=== PATIENT | male | born 1960 | race Caucasian/White ===

== ENCOUNTER 2016-07-10 14:27 | Emergency (ER) | payer OTHER ==
[~2016-07-10] VITALS: Ht 180.3 cm; Wt 63.5 kg
[~2016-07-10 14:27] MED LIST: ABIL2TAB2 PO; ACET50TA PO; ASPI325T5 PO; ATEN50TA2 PO; ATOR1TAB19 PO; CHLO10CA PO; CHLORHEXIDINE TOP; CLOM25CA2 PO; CLON0.5T PO; CLONIPINE PO; CYMB1CAP PO; FOLI1TAB2 PO; IBUP200T2 PO; LIPI20TA PO; MAGN400T5 PO; MOBI15TA PO; MULTCAP PO; NEUR300C PO; NICO21DI5 TD; NORC5TAB PO; OMEP20CA3 PO; OXYC1SOL PO; OXYC1TAB30 PO; PAXI20TA3 PO; PERC2.5T PO; PERC5TAB PO; PERC7.5T12 PO; PRAV20TA2 PO; PRAV80TA2 PO; PROZ20CA11 PO; REME15TA PO; TIZA4CAP3 PO; TRAZ100T2 PO; TRAZ150T14 PO; TRIA EXT; TYLE325T5 PO; ULTR50TA PO; VITA100T60 PO; buspar PO; campral PO; serax PO
[2016-07-10] MEDS ORDERED: ZOFR4TAB3 PO (15:56)
[2016-07-10] MEDS ORDERED: OXAZ30CA2 PO (15:56)
[2016-07-10] MEDS ORDERED: OXAZEPAM 15 MG CAP PO ONE (16:00)
[2016-07-10 16:12] VITALS: BP 130/69
== END 2016-07-10 16:14 | disposition home or self-care (01) ==
LOC: M ED 16:13
DX: F10.20 Alcohol dependence, uncomplicated (principal)

== ENCOUNTER 2016-07-26 14:41 | Inpatient (IN) | payer MEDICAID, OTHER ==
[~2016-07-26] VITALS: Ht 180.3 cm; Wt 72.6 kg
[~2016-07-26 14:41] MED LIST changes: +OXAZ30CA2 PO; +ZOFR4TAB3 PO
[2016-07-26] MEDS ORDERED: LORazepam 2 MG/ML VIAL (J2060) IV STA (15:57)
[2016-07-26] MEDS ORDERED: PANTOPRAZOLE 40MG INJ (PROTONIX) (C9113) IV ONE (16:00)
[2016-07-26] MEDS ORDERED: ONDANSETRON 4MG/2ML VIAL (J2405) IV ONE (16:00)
[2016-07-26] MEDS ORDERED: NS 1,000 ML IV ONE (16:00)
[2016-07-26 16:06] LABS: MEAN CORPUSCULAR HGB CONC 35.3 g/dl (32.0-36.5); MEAN CORPUSCULAR VOLUME 99.4 fl (80.0-96.0); RED CELL DISTRIBUTION WIDTH 13.2 % (11.5-14.5); WHITE BLOOD COUNT 8.9 K/mm3 (4.0-10.0)
[2016-07-26 16:22] LABS: ALBUMIN 3.9 GM/DL (3.2-5.2); ALBUMIN/GLOBULIN RATIO 0.83 (1.00-1.93); ALKALINE PHOSPHATASE 103 U/L (45-117); ALT/SGPT 48 U/L (12-78); ANION GAP 16 MEQ/L (8-16); AST/SGOT 94 U/L (15-37); BILIRUBIN,DIRECT 1.2 MG/DL (0.0-0.2); BILIRUBIN,TOTAL 3.5 MG/DL (0.2-1.0); BLOOD UREA NITROGEN 8 MG/DL (7-18); CALCIUM LEVEL 9.4 MG/DL (8.5-10.1); CARBON DIOXIDE LEVEL 35 MEQ/L (21-32); CHLORIDE LEVEL 78 MEQ/L (98-107); CREATININE FOR GFR 1.53 MG/DL (0.70-1.30); GLOMERULAR FILTRATION RATE 50.4 (>56); GLUCOSE, FASTING 113 MG/DL (70-105); POTASSIUM SERUM 2.2 MEQ/L (3.5-5.1); SODIUM LEVEL 129 MEQ/L (136-145); TOTAL PROTEIN 8.6 GM/DL (6.4-8.2)
[2016-07-26] MEDS ORDERED: POTASSIUM CHLORIDE 10 MEQ SR TABLET PO ONE (16:30)
[2016-07-26] MEDS ORDERED: OXAZEPAM 15 MG CAP PO ONE (17:00)
[2016-07-26] MEDS ORDERED: NS 1,000 ML IV SCH (17:47)
[2016-07-26 17:48] LABS: AMYLASE 78 U/L (25-115); MAGNESIUM LEVEL 2.4 MG/DL (1.8-2.4); PHOSPHORUS LEVEL 2.9 MG/DL (2.5-4.9)
[2016-07-26] MEDS ORDERED: ACETAMINOPHEN TAB 650MG DOSE (2X325MG) PO PRN (18:00)
[2016-07-26] MEDS ORDERED: ONDANSETRON 4MG/2ML VIAL (J2405) IV PRN (18:00)
--- NOTE | 2016-07-26 18:23 | HPE ---
DATE OF ADMISSION: 07/26/2016 HISTORY OF PRESENT ILLNESS: 56-year-old white male with a history of alcoholism. He has had previous admissions to inpatient mental health for evaluation of this disorder. He says he drinks about 8 beers a day and occasionally has a couple shots of liquor with it. He does have a history of previous withdrawal symptoms and he thinks he might be having them currently and he presented to the ER. He has had nausea with vomiting the last 24 hours. No blood in the vomit. He has chronic loose stools, but he has had no blood in his stools. He thinks he may have a history of pancreatitis. He has amylase and lipase pending. He tells me he has cirrhosis of the liver, but I do not see any convincing evidence of same on prior radiographic studies or blood work. He had ultrasound of the liver in 2016 which showed findings consistent with probable fatty liver. He has had previous LFTs elevated. His SGOT has been greater than his SGPT which is consistent with alcohol hepatitis. His liver function test on this visit are minimally elevated.. On admission today, his white count is not elevated. He has had no fever. He has a contraction alkalosis with hypokalemia. His sodium is depressed at 129. Lactic acid level was elevated at 4.6. Amylase and lipase are pending. His total protein is elevated, probably reflecting dehydration. Albumin is higher than I would expect also. I reviewed his prior records. He has been in the ER several times intoxicated with blood level alcohol as high as 0.4. Only other substance abuse he uses is marijuana. Coagulation studies were not done on this admission. In the past, they have been mildly elevated. His INR has been 1.2. His previous CBCs have occasionally been noted for mild thrombocytopenia, probably secondary from alcohol. I do not think I can relate this to hypersplenism. His last CT of the abdomen was in March 2014. Liver, spleen, pancreas were normal at that time. He had an EKG done which shows normal sinus rhythm and frequent premature ventricular contractions (PVCs). He also has anterior ST-T wave abnormalities. As noted his potassium was low and magnesium level is pending. MEDICATIONS: The patient is unsure. He says he takes meloxicam; does not know what he takes it for and he says he takes one other medication, but he cannot recall what it is. ALLERGIES: No allergies. SOCIAL HISTORY: He readily admits he has been an alcoholic for many years; smokes marijuana. FAMILY HISTORY: Dad of complications of alcoholism. PAST MEDICAL HISTORY: He has had a fractured left leg with an ORIF lower leg, hernia repair, several ER visits for intoxication, mental health visits, chronic back pain history of depression. He has seen mental health. Currently I do not believe he is on any antidepressants. REVIEW OF SYSTEMS: General: No fever or chills. HEENT: His left eyelid was stuck closed today, but that is open now. There does not appear to be any conjunctivitis Cardiopulmonary: Negative. GI: As discussed above. He also has some mid epigastric pain. He does have chronic loose stools. : Negative. Musculoskeletal: Arthritic complaints. Hematologic: Negative except for issues in the past with very mild elevation in PT/INR and intermittently low platelets. Endocrine: Negative. Dermatologic: Negative. Psychiatric: As above. PHYSICAL EXAMINATION: Temperature afebrile. Blood pressure is 141/64, pulse rates 104, O2 saturation 97%, respiratory rate 16. General appearance: Disheveled, unkempt gentleman. HEENT: Head is normocephalic, atraumatic. Eyes: Pupils are equal. Sclera anicteric. Conjunctivae without injection. He was having some matting of the left eye earlier today, but that seems to be resolved. Oropharynx: He is edentulous. Neck: Supple. Carotids are normal. No bruits. No jugular venous distention (JVD). No cervical adenopathy. Heart: Was tachycardia with ectopics. Chest: No murmurs. Chest: Was clear. Abdomen was nontender. He is complaining of some vague epigastric discomfort. Extremities: No clubbing, cyanosis or edema. Good peripheral pulses. Rectal: Rectal smear revealed, heme test negative. IMPRESSION/PLAN: 1. Alcohol withdrawal. Probable alcoholic gastritis. Amylase and lipase pending to rule out pancreatitis. 2. Electrolyte abnormality with hyponatremia and hypokalemia and contraction alkalosis. 3. Fatty liver. 4. History of hyperlipidemia. 5. Acute kidney injury. GFR is in the high 50s. He normally is greater than 60. 6. Elevated lactic acid, probably secondary to alcohol. I do not have an EtOH level pending. He does not have any suggestion of sepsis. No fever. No elevation in white count. 7. Profound dehydration. PLAN: IV fluids, benzodiazepines, replete electrolytes. Followup on abnormal EKG. Will also followup with troponin.
[2016-07-26 20:00] VITALS: BP 134/58
[2016-07-26] MEDS: THIAMINE 100 MG TAB PO SCH (20:15)
[2016-07-26] MEDS: MAG SULF 1GM/100ML (MAG RUN) 1 GM in APPROPRIATE DILUENT 1 EA IV SCH ×2 (20:15→22:05)
[2016-07-26] MEDS: KCL 40MEQ in NS 1000ML 1,000 ML IV SCH (20:15)
[2016-07-26] MEDS: OXAZEPAM 10 MG CAP PO SCH (23:48)
[2016-07-27] VITALS (8 sets, daily range): BP systolic 89–112; BP diastolic 52–64
[2016-07-27] MEDS: KCL 40MEQ in NS 1000ML 1,000 ML IV SCH ×4 (04:58→19:53)
[2016-07-27] MEDS: OXAZEPAM 10 MG CAP PO SCH ×4 (05:00→22:52)
[2016-07-27 08:06] LABS: BASO % 0.4 % (0.0-1.0); EOS % 1.2 % (0.0-3.0); LARGE UNSTAINED CELL # 0.1 K/mm3 (0.0-0.4); LARGE UNSTAINED CELL % 1.8 % (0.0-4.0); LYMPH # 0.8 K/mm3 (1.5-4.5); LYMPH % 16.4 % (24.0-44.0); MEAN CORPUSCULAR HEMOGLOBIN 34.9 pg (27.0-33.0); MEAN CORPUSCULAR HGB CONC 34.8 g/dl (32.0-36.5); MEAN CORPUSCULAR VOLUME 100.2 fl (80.0-96.0); MONO # 0.4 K/mm3 (0.0-0.8); MONO % 8.7 % (0.0-5.0); NEUTROPHILS # 3.1 K/mm3 (1.8-7.7); NEUTROPHILS % 71.5 % (36.0-66.0); WHITE BLOOD COUNT 4.4 K/mm3 (4.0-10.0)
[2016-07-27 08:17] LABS: ALBUMIN 2.6 GM/DL (3.2-5.2); ALKALINE PHOSPHATASE 68 U/L (45-117); ALT/SGPT 30 U/L (12-78); ANION GAP 8 MEQ/L (8-16); AST/SGOT 66 U/L (15-37); BILIRUBIN,TOTAL 2.4 MG/DL (0.2-1.0); BLOOD UREA NITROGEN 10 MG/DL (7-18); CALCIUM LEVEL 7.3 MG/DL (8.5-10.1); CARBON DIOXIDE LEVEL 35 MEQ/L (21-32); CHLORIDE LEVEL 93 MEQ/L (98-107); CREATININE FOR GFR 0.97 MG/DL (0.70-1.30); GLOMERULAR FILTRATION RATE > 60.0 (>56); GLUCOSE, FASTING 85 MG/DL (70-105); MAGNESIUM LEVEL 2.8 MG/DL (1.8-2.4); POTASSIUM SERUM 3.1 MEQ/L (3.5-5.1); SODIUM LEVEL 136 MEQ/L (136-145); TOTAL PROTEIN 5.5 GM/DL (6.4-8.2)
[2016-07-27 08:33] LABS: PLATELET COUNT, AUTOMATED 82 k/mm3 (150-450)
[2016-07-27] MEDS: THIAMINE 100 MG TAB PO SCH (09:06)
[2016-07-27] MEDS ORDERED: POTASSIUM CHLORIDE 10 MEQ SR TABLET PO ONE (11:30)
[2016-07-27] MEDS ORDERED: SODIUM CHLORIDE 0.9% 1000 ML IV ONE (11:30)
[2016-07-27] MEDS: MULTIVITAMINS/MINERALS THERAP 1 TAB PO SCH (11:36)
[2016-07-27] MEDS: FOLIC ACID 1 MG TAB PO SCH (11:36)
--- NOTE | 2016-07-27 12:25 | IPN ---
DATE: 07/27/2016 This is a 56-year-old gentleman seen at bedside resting comfortably. He does still have some asterixis noted when we have a conversation but he denies any headache, lightheadedness, nausea, vomiting, is tolerating his breakfast. Temperature 98.1, pulse 72 and regular, respiratory rate is 20, blood pressure 109/64, SPO2 is 96% on room air. General: The patient appears to be in no acute distress. HEENT: Unremarkable. Lungs: Clear. Heart: Regular rhythm. Abdomen: Soft. Extremities: He does have some demonstrated asterixis of the hands. Some slight tremulousness noted. The lower extremities showed no edema or calf tenderness. LABORATORY DATA: White count is 4.4, hemoglobin 11.4, likely hemodilution. Platelets are 82,000. Sodium is 136, potassium 3.1, chloride 93, bicarb 35, anion gap, BUN is 10, creatinine 0.97, glucose is 85, calcium 7.3, magnesium 2.8, total bilirubin 2.4 down from 3.5. AST is 66, ALT 30, alkaline phosphatase 68. Troponin less than 0.02, albumin is 5.5. Admission amylase 78, lipase 235. ASSESSMENT/PLAN: 1. Alcohol withdrawal with some metabolic encephalopathy on admission probable alcoholic gastritis. However, his amylase and lipase are negative and ruled out pancreatitis. Will try to advance diet as tolerated. He is also on thiamine, folic acid, multivitamin. Will monitor for further withdrawal symptoms. He does have ordered Serax and Ativan for breakthrough. 2. Hypotension: We will go ahead and give him a bolus of 500 mL normal saline. Will keep an eye on his blood pressure. 3. Electrolyte abnormality with hypokalemia, which we will go ahead and replete his hyponatremia does appear to be improving. 4. Fatty liver likely secondary to alcoholism: His LFTs do appear to be slightly improved and he does not appear to have any abnormal INR. 5. History of hyperlipidemia: We will hold off on any statin therapy, currently. 6. Acute kidney injury: Will monitor his renal function. This does appear to be improving as well. 7. Elevated lactic acid. He does not have any symptomatology, fevers, white count or any other suggestion that he would be septic. 8. Dehydration likely secondary to alcohol consumption and possible gastritis. DISPOSITION: We will continue with IV fluids, Serax Ativan multivitamin, folic acid, thiamine. Followup EKG this morning was unremarkable and his troponin was unremarkable as well. Will go ahead and plan on downgrading him to the medical floor. Patient/Family services (PFS) is involved and he may need some outpatient followup to make sure that he is connected with [facility] or another program to help out with his alcohol abuse. Deep venous thrombosis (DVT) prophylaxis with thromboembolic deterrent stockings (TEDS) and sequential since he does have some mild thrombocytopenia. We will repeat this in the morning as well.
--- NOTE | 2016-07-27 13:28 | ECGEPIP ---
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
[2016-07-27] MEDS: PANTOPRAZOLE 40MG INJ (PROTONIX) (C9113) IV SCH (16:44)
[2016-07-27] MEDS ORDERED: NICOTINE 21MG/24HR 1 EA TRANSDERMAL TD ONE (21:15)
[2016-07-27] MEDS: LORazepam 2 MG/ML VIAL (J2060) IM PRN (21:36)
[2016-07-27] MEDS ORDERED: LORazepam 2 MG/ML VIAL (J2060) IV STA (23:02)
[2016-07-28] VITALS: BP 102/63
[2016-07-28] MEDS ORDERED: HALOPERIDOL 5 MG/ML VIAL (J1630) IV STA (00:23)
[2016-07-28] MEDS: KCL 40MEQ in NS 1000ML 1,000 ML IV SCH ×4 (02:17→21:48)
[2016-07-28 04:00] VITALS: BP 110/64
[2016-07-28 05:24] LABS: BASO % 0.5 % (0.0-1.0); EOS # 0.1 K/mm3 (0.0-0.50); EOS % 1.8 % (0.0-3.0); LARGE UNSTAINED CELL # 0.1 K/mm3 (0.0-0.4); LARGE UNSTAINED CELL % 2.2 % (0.0-4.0); LYMPH % 28.7 % (24.0-44.0); MEAN CORPUSCULAR HEMOGLOBIN 35.9 pg (27.0-33.0); MEAN CORPUSCULAR HGB CONC 35.2 g/dl (32.0-36.5); MONO # 0.3 K/mm3 (0.0-0.8); MONO % 9.7 % (0.0-5.0); NEUTROPHILS # 1.8 K/mm3 (1.8-7.7); NEUTROPHILS % 57.1 % (36.0-66.0); RED CELL DISTRIBUTION WIDTH 12.8 % (11.5-14.5); WHITE BLOOD COUNT 3.2 K/mm3 (4.0-10.0)
[2016-07-28 05:26] LABS: PLATELET COUNT, AUTOMATED 74 k/mm3 (150-450)
[2016-07-28] MEDS: OXAZEPAM 10 MG CAP PO SCH ×5 (05:26→23:16)
[2016-07-28 05:31] LABS: ALBUMIN 2.2 GM/DL (3.2-5.2); ALBUMIN/GLOBULIN RATIO 0.76 (1.00-1.93); ALKALINE PHOSPHATASE 111 U/L (45-117); ALT/SGPT 24 U/L (12-78); ANION GAP 2 MEQ/L (8-16); AST/SGOT 46 U/L (15-37); BILIRUBIN,TOTAL 1.2 MG/DL (0.2-1.0); BLOOD UREA NITROGEN 13 MG/DL (7-18); CALCIUM LEVEL 7.3 MG/DL (8.5-10.1); CARBON DIOXIDE LEVEL 31 MEQ/L (21-32); CHLORIDE LEVEL 104 MEQ/L (98-107); CREATININE FOR GFR 0.88 MG/DL (0.70-1.30); GLOMERULAR FILTRATION RATE > 60.0 (>56); GLUCOSE, FASTING 92 MG/DL (70-105); POTASSIUM SERUM 4.1 MEQ/L (3.5-5.1); SODIUM LEVEL 137 MEQ/L (136-145); TOTAL PROTEIN 5.1 GM/DL (6.4-8.2)
[2016-07-28 08:00] VITALS: BP 106/56
[2016-07-28] MEDS: NICOTINE 21MG/24HR 1 EA TRANSDERMAL TD SCH (08:31)
[2016-07-28] MEDS: MULTIVITAMINS/MINERALS THERAP 1 TAB PO SCH (08:31)
[2016-07-28] MEDS: THIAMINE 100 MG TAB PO SCH (08:31)
[2016-07-28] MEDS: FOLIC ACID 1 MG TAB PO SCH (08:32)
--- NOTE | 2016-07-28 11:19 | IPNPDOC ---
Subjective Date Seen The patient was seen on 07/28/16. Subjective Chief Complaint/HPI The patient is a 56-year-old male admitted with a reason for visit of Alcohol Withdrawal. Events since last encounter Per nrusing reports, patient agitated overnight. Received Ativan 3mg IV and Haldol 5 mg IV within ai 1.5 hour time frame. Now drowsy, sedated, difficult to wake. Constitutional: Denies: Chills, Fever, Night Sweats Skin: Denies: Rash, Lesions, Breakdown Pulmonary: Denies: Dyspnea, Cough Cardiovascular: Denies: Chest Pain, Palpitations, Orthopnea, Paroxysmal Noc. Dyspnea, Lt Headedness Gastrointestinal: Denies: Nausea, Vomiting, Abdominal Pain, Diarrhea, Constipation Genitourinary: Denies: Dysuria, Frequency, Incontinence, Retention Psych: Reports: Mood Normal, Denies: Depression, Memory Issues Objective Physical Examination General Exam: Positive: Alert, No Acute Distress, Other (drowsy, wakes for provider, urinated on own. ) Eye Exam: Positive: PERRLA, Conjunctiva & lids normal, EOMI, Negative: Sclera icteric Neck Exam: Positive: Supple, Negative: JVD, thyromegaly Chest Exam: Positive: Clear to auscultation, Normal air movement Heart Exam: Positive: Rate Normal, Regular Rhythm, Normal S1, Normal S2, Negative: Murmurs, Rubs Telemetry: Positive: No significant arrhythmia Abdomen Exam: Positive: Normal bowel sounds, Soft, Tenderness (RUQ), Negative: Hepatospenomegaly Neuro Exam: Positive: Normal Gait, Normal Speech, Cranial Nerves 3-12 NL, Reflexes 2+ Psych Exam: Positive: Mental status NL (lethargic) Assessment /Plan Problems (1) Alcohol withdrawal Status: Acute Problem Text: IVF at 150 cc per hour, CIWA protocol ordered. Thiamine, folate supplementation. Drowsy, lethargic due to oversedation. 1200 Oxazepam to be held due to lethargy. monitor. (2) Hyponatremia Status: Acute Problem Text: 07/28/2016: most recent sodium 137. will monitor CMP ordered for today at 1200 (3) Abdominal pain Status: Acute Problem Text: Will eval imaging today. (4) Alcohol abuse Status: Chronic Problem Specific Plan: Monitor Clinically Plan/VTE VTE Prophylaxis Ordered?: No (low platelets) VS, I&O, 24H, Fishbone Vital Signs/I&O Vital Signs Date Time Temp Pulse Resp B/P (MAP) Pulse Ox O2 Delivery O2 Flow Rate FiO2 07/28/16 08:00 98.3 71 17 106/56 (73) 93 Room Air I&O- Last 24 Hours up to 6 AM 07/28/16 05:59 Intake Total 4010 ml Output Total 850 ml Balance 3160 ml Laboratory Data 24H LABS Laboratory Tests 2 07/28/16 04:55: White Blood Count 3.2L, Red Blood Count 3.11L, Hemoglobin 11.2L, Hematocrit 31.7L, Mean Corpuscular Volume 102.0H, Mean Corpuscular Hemoglobin 35.9H, Mean Corpuscular Hemoglobin Concent 35.2, Red Cell Distribution Width 12.8, Platelet Count 74L, Neutrophils (%) (Auto) 57.1, Lymphocytes (%) (Auto) 28.7, Monocytes ( %) (Auto) 9.7H, Eosinophils (%) (Auto) 1.8, Basophils (%) (Auto) 0.5, Neutrophils # (Auto) 1.8, Lymphocytes # (Auto) 1.0L, Monocytes # (Auto) 0.3, Eosinophils # (Auto) 0.1, Basophils # (Auto) 0.0, Large Unclassified Cells % 2.2 , Large Unclassified Cells # 0.1, Anion Gap 2L, Glomerular Filtration Rate > 60.0, Blood Urea Nitrogen 13, Creatinine 0.88, Sodium Level 137, Potassium Level 4.1#, Chloride Level 104, Carbon Dioxide Level 31, Calcium Level 7.3L, Aspartate Amino Transf (AST/SGOT) 46H, Alanine Aminotransferase (ALT/SGPT) 24, Alkaline Phosphatase 111, Total Bilirubin 1.2H, Total Protein 5.1L, Albumin 2.2L , Albumin/Globulin Ratio 0.76L CBC/BMP Laboratory Tests 07/28/16 04:55 Red Blood Count 3.11 L, Mean Corpuscular Volume 102.0 H, Mean Corpuscular Hemoglobin 35.9 H, Mean Corpuscular Hemoglobin Concent 35.2, Red Cell Distribution Width 12.8, Neutrophils (%) (Auto) 57.1, Lymphocytes (%) (Auto) 28.7, Monocytes (%) (Auto) 9.7 H, Eosinophils (%) (Auto) 1.8, Basophils (%) ( Auto) 0.5, Neutrophils # (Auto) 1.8, Lymphocytes # (Auto) 1.0 L, Monocytes # ( Auto) 0.3, Eosinophils # (Auto) 0.1, Basophils # (Auto) 0.0, Calcium Level 7.3 L , Aspartate Amino Transf (AST/SGOT) 46 H, Alanine Aminotransferase (ALT/SGPT) 24 , Alkaline Phosphatase 111, Total Bilirubin 1.2 H, Total Protein 5.1 L, Albumin 2.2 L Ann Smith [facility] Jul 28, 2016 11:19
--- NOTE | 2016-07-28 11:40 | ECGEPIP ---
Stationary ECG Study 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
[2016-07-28 12:00] VITALS: BP 104/56
[2016-07-28 14:19] LABS: ALBUMIN 2.3 GM/DL (3.2-5.2); ALBUMIN/GLOBULIN RATIO 0.85 (1.00-1.93); ALKALINE PHOSPHATASE 110 U/L (45-117); ALT/SGPT 25 U/L (12-78); ANION GAP 6 MEQ/L (8-16); AST/SGOT 42 U/L (15-37); BLOOD UREA NITROGEN 10 MG/DL (7-18); CALCIUM LEVEL 7.6 MG/DL (8.5-10.1); CARBON DIOXIDE LEVEL 27 MEQ/L (21-32); CHLORIDE LEVEL 104 MEQ/L (98-107); GLOMERULAR FILTRATION RATE > 60.0 (>56); GLUCOSE, FASTING 94 MG/DL (70-105); POTASSIUM SERUM 4.5 MEQ/L (3.5-5.1); SODIUM LEVEL 137 MEQ/L (136-145)
[2016-07-28] MEDS: PANTOPRAZOLE 40MG INJ (PROTONIX) (C9113) IV SCH (15:04)
[2016-07-28 16:00] VITALS: BP 136/84
--- NOTE | 2016-07-28 18:04 | REP ---
LIMITED ABDOMEN ULTRASOUND: HISTORY: Right upper quadrant pain. COMPARISON: 11/22/2015 The gallbladder is contracted. There are polyps versus nonmobile stones on the fundus of a gallbladder. The gallbladder wall is thick measuring 3 mm. The common bile duct is dilated measuring 7.9 mm. A small amount of pericholecystic fluid is present. There is fatty infiltration of the liver. The pancreas is not seen. The right kidney measures 5.6 cm in transverse x 5.1 cm in AP x 10.7 cm in cephalocaudal dimensions. There is no hydronephrosis or mass. A small amount of ascites is present. IMPRESSION:1. There are polyps versus nonmobile stones in the fundus of the gallbladder wall. The common bile duct is dilated measuring 7.9 mm. 2. Fatty infiltration of the liver. 3. Small amount of ascites. Signed by Bairon Sewell MD 07/31/2016 08:30 A
[2016-07-28 20:00] VITALS: BP 131/74
[2016-07-29] VITALS: BP 127/68
[2016-07-29 02:00] VITALS: BP 113/73
[2016-07-29] MEDS: LORazepam 2 MG/ML VIAL (J2060) IM PRN ×2 (02:01→12:53)
[2016-07-29 04:00] VITALS: BP 113/73
[2016-07-29 04:50] LABS: EOS # 0.1 K/mm3 (0.0-0.50); LARGE UNSTAINED CELL # 0.1 K/mm3 (0.0-0.4); LARGE UNSTAINED CELL % 3.1 % (0.0-4.0); LYMPH % 27.5 % (24.0-44.0); MEAN CORPUSCULAR HEMOGLOBIN 35.2 pg (27.0-33.0); MEAN CORPUSCULAR HGB CONC 34.3 g/dl (32.0-36.5); MEAN CORPUSCULAR VOLUME 102.7 fl (80.0-96.0); MONO # 0.3 K/mm3 (0.0-0.8); MONO % 8.6 % (0.0-5.0); NEUTROPHILS # 1.9 K/mm3 (1.8-7.7); NEUTROPHILS % 57.8 % (36.0-66.0); RED CELL DISTRIBUTION WIDTH 12.9 % (11.5-14.5); WHITE BLOOD COUNT 3.2 K/mm3 (4.0-10.0)
[2016-07-29 04:56] LABS: PLATELET COUNT, AUTOMATED 76 k/mm3 (150-450)
[2016-07-29 05:03] LABS: ALBUMIN 2.3 GM/DL (3.2-5.2); ALBUMIN/GLOBULIN RATIO 0.79 (1.00-1.93); ALKALINE PHOSPHATASE 130 U/L (45-117); ALT/SGPT 24 U/L (12-78); ANION GAP 7 MEQ/L (8-16); AST/SGOT 40 U/L (15-37); BILIRUBIN,TOTAL 0.7 MG/DL (0.2-1.0); BLOOD UREA NITROGEN 6 MG/DL (7-18); CALCIUM LEVEL 7.4 MG/DL (8.5-10.1); CARBON DIOXIDE LEVEL 26 MEQ/L (21-32); CHLORIDE LEVEL 103 MEQ/L (98-107); CREATININE FOR GFR 0.76 MG/DL (0.70-1.30); GLOMERULAR FILTRATION RATE > 60.0 (>56); GLUCOSE, FASTING 110 MG/DL (70-105); POTASSIUM SERUM 4.3 MEQ/L (3.5-5.1); SODIUM LEVEL 136 MEQ/L (136-145); TOTAL PROTEIN 5.2 GM/DL (6.4-8.2)
[2016-07-29] MEDS: OXAZEPAM 10 MG CAP PO SCH ×2 (05:20→11:56)
[2016-07-29] MEDS: KCL 40MEQ in NS 1000ML 1,000 ML IV SCH ×2 (05:21→11:50)
[2016-07-29 08:00] VITALS: BP 127/76
[2016-07-29] MEDS: THIAMINE 100 MG TAB PO SCH (08:52)
[2016-07-29] MEDS: MULTIVITAMINS/MINERALS THERAP 1 TAB PO SCH (08:52)
[2016-07-29] MEDS: FOLIC ACID 1 MG TAB PO SCH (08:52)
[2016-07-29] MEDS: NICOTINE 21MG/24HR 1 EA TRANSDERMAL TD SCH (08:53)
[2016-07-29 12:00] VITALS: BP 123/70
[2016-07-29] MEDS ORDERED: LORazepam 1 MG TAB PO PRN (14:45)
[2016-07-29] MEDS ORDERED: KCL 40MEQ in NS 1000ML 1,000 ML IV SCH (15:00)
[2016-07-29] MEDS ORDERED: LORazepam 1 MG TAB PO ONE (15:00)
--- NOTE | 2016-07-29 15:06 | IPNPDOC ---
Subjective Date Seen The patient was seen on 07/29/16. Subjective Chief Complaint/HPI The patient is a 56-year-old male admitted with a reason for visit of Alcohol Withdrawal. Events since last encounter Patient has no complaints this morning. He states he had no difficulty eating and denies any abdominal pain. Constitutional: Denies: Chills, Fever ENT: Denies: Head Aches Skin: Denies: Rash Pulmonary: Denies: Dyspnea, Cough Cardiovascular: Denies: Chest Pain, Palpitations Gastrointestinal: Denies: Nausea, Vomiting, Abdominal Pain Genitourinary: Denies: Dysuria Musculoskeletal: Denies: Neck Pain, Back Pain Neurological: Denies: Weakness, Numbness, Confusion Objective Physical Examination General Exam: Positive: Alert, No Acute Distress, Other (drowsy, wakes for provider, urinated on own. ) Eye Exam: Positive: PERRLA, Conjunctiva & lids normal, EOMI, Negative: Sclera icteric Neck Exam: Positive: Supple, Negative: JVD, thyromegaly Chest Exam: Positive: Clear to auscultation, Normal air movement Heart Exam: Positive: Rate Normal, Regular Rhythm, Normal S1, Normal S2, Negative: Murmurs, Rubs Telemetry: Positive: No significant arrhythmia Abdomen Exam: Positive: Normal bowel sounds, Soft, Negative: Tenderness, Hepatospenomegaly Neuro Exam: Positive: Normal Gait, Normal Speech, Cranial Nerves 3-12 NL, Reflexes 2+ Psych Exam: Positive: Mental status NL (lethargic) Assessment /Plan Problems (1) Alcohol withdrawal Status: Acute Problem Text: Oxazepam 20 mg Q6H for withdrawal symptoms; he is not sedated today and has only required 3 doses of ativan in the last 24 hours. CIWA scores have been around 6. Decrease to IVF at 100 cc per hour. VSS stable. CIWA protocol ordered. Thiamine, folate supplementation. (2) Hyponatremia Status: Resolved (3) Abdominal pain Status: Acute Problem Text: Patient was c/o RUQ pain yesterday. He states pain has resolved, and denies pain with eating. Will monitor symptoms. RUQ ultrasound obtained 07/28/16: IMPRESSION: 1. There are polyps versus nonmobile stones in the fundus of the gallbladder wall. The common bile duct is dilated measuring 7.9 mm. 2. Fatty infiltration of the liver. 3. Small amount of ascites. (4) Alcohol abuse Status: Chronic Problem Specific Plan: Monitor Clinically (5) Tobacco use disorder Status: Chronic Problem Text: Continue nicotine patch Plan/VTE VTE Prophylaxis Ordered?: No (low platelets) VS, I&O, 24H, Fishbone Vital Signs/I&O Vital Signs Date Time Temp Pulse Resp B/P (MAP) Pulse Ox O2 Delivery O2 Flow Rate FiO2 07/29/16 12:00 98.5 89 17 123/70 (87) 96 Room Air I&O- Last 24 Hours up to 6 AM 07/29/16 05:59 Intake Total 2840 ml Output Total 2775 ml Balance 65 ml Laboratory Data 24H LABS Laboratory Tests 2 07/29/16 04:13: White Blood Count 3.2L, Red Blood Count 3.26L, Hemoglobin 11.5L, Hematocrit 33.5L, Mean Corpuscular Volume 102.7H, Mean Corpuscular Hemoglobin 35.2H, Mean Corpuscular Hemoglobin Concent 34.3, Red Cell Distribution Width 12.9, Platelet Count 76L, Neutrophils (%) (Auto) 57.8, Lymphocytes (%) (Auto) 27.5, Monocytes ( %) (Auto) 8.6H, Eosinophils (%) (Auto) 2.0, Basophils (%) (Auto) 1.0, Neutrophils # (Auto) 1.9, Lymphocytes # (Auto) 1.0L, Monocytes # (Auto) 0.3, Eosinophils # (Auto) 0.1, Basophils # (Auto) 0.0, Large Unclassified Cells % 3.1 , Large Unclassified Cells # 0.1, Anion Gap 7L, Glomerular Filtration Rate > 60.0, Blood Urea Nitrogen 6L, Creatinine 0.76, Sodium Level 136, Potassium Level 4.3, Chloride Level 103, Carbon Dioxide Level 26, Calcium Level 7.4L, Aspartate Amino Transf (AST/SGOT) 40H, Alanine Aminotransferase (ALT/SGPT) 24, Alkaline Phosphatase 130H, Total Bilirubin 0.7, Total Protein 5.2L, Albumin 2.3L , Albumin/Globulin Ratio 0.79L CBC/BMP Laboratory Tests 07/29/16 04:13 Red Blood Count 3.26 L, Mean Corpuscular Volume 102.7 H, Mean Corpuscular Hemoglobin 35.2 H, Mean Corpuscular Hemoglobin Concent 34.3, Red Cell Distribution Width 12.9, Neutrophils (%) (Auto) 57.8, Lymphocytes (%) (Auto) 27.5, Monocytes (%) (Auto) 8.6 H, Eosinophils (%) (Auto) 2.0, Basophils (%) ( Auto) 1.0, Neutrophils # (Auto) 1.9, Lymphocytes # (Auto) 1.0 L, Monocytes # ( Auto) 0.3, Eosinophils # (Auto) 0.1, Basophils # (Auto) 0.0, Calcium Level 7.4 L , Aspartate Amino Transf (AST/SGOT) 40 H, Alanine Aminotransferase (ALT/SGPT) 24 , Alkaline Phosphatase 130 H, Total Bilirubin 0.7, Total Protein 5.2 L, Albumin 2.3 L ROLANDO VAUGHN MD Jul 29, 2016 15:06
--- NOTE | 2016-07-29 19:11 | DSES ---
DATE OF ADMISSION: 07/26/2016 DATE OF DISCHARGE: 07/29/2016 (The patient left against medical advice.) Primary Care Provider: DAWOOD Boone Attending Physician: Renetta Baker MD PRINCIPAL DIAGNOSES: 1. Alcohol withdrawal. 2. Hyponatremia. 3. Acute kidney injury due to profound dehydration 4. Hypokalemia and contraction alkalosis 5. Right upper quadrant abdominal pain. 6. Alcohol use disorder. 7. Tobacco use disorder. SUMMARY STATEMENT: This is a 56-year-old man, a patient of Feliciano Haines, who presented with alcohol withdrawal. He reported drinking eight beers a day, as well as a couple of shots of liquor. Prior to admission, he had nausea and vomiting but no hematemesis. He was admitted and treated for alcohol withdrawal with oxazepam as well as lorazepam as needed. He initially had multiple electrolyte abnormalities including hypokalemia, hyponatremia and alkalosis which resolved with fluid administration. On the last day of hospitalization, the patient became agitated and stated he wanted to go outside to smoke cigarettes. His agitation was treated with lorazepam but despite this, the patient stated he wished to leave against medical advice in order to go home to drink alcohol and to smoke. The patient's nurse recommended that he stay and discussed with him risks for leaving including risks of recurrence of presenting symptoms and risk of . The patient acknowledged understanding of these risks and signed out against medical advice. I had evaluated the patient earlier in the day and found him to be alert and oriented to person, date, situation. DISCHARGE PLANS: 1. Discharge medications: None. 2. Followup recommended with his primary care provider, Bhanu Haines. CONDITION ON DISCHARGE: Stable. PROGNOSIS: Fair. PENDING STUDIES: None. HOSPITAL COURSE: This is a 56-year-old man with: 1. Alcohol use disorder and alcohol withdrawal: The patient was treated with oxazepam 20 mg every six hours, as well as lorazepam. He did not require much lorazepam for agitation during the hospitalization. He was also given folic acid , thiamine and was rehydrated. He elected to leave against medical advice because he wanted to resume drinking alcohol. 2. Acute kidney injury: This resolved with intravenous (IV) fluid administration. 3. Hypokalemia and hyponatremia: These resolved with fluid administration and supplemental potassium. 4. Right upper quadrant abdominal pain was noted on second day of admission. A right upper quadrant ultrasound showed polyps versus non-mobile stones in the fundus of the gallbladder and dilated common bile duct of 7.9 mm, as well as fatty infiltration of the liver and a small amount of ascites. Results of the ultrasound were discussed with the patient, and outpatient followup was recommended. Pain had resolved on day patient left against medical advice. 5. Tobacco use disorder: patient was given a nicotine patch. MTDD
[2016-07-30] MEDS ORDERED: KEFL500C7 PO (13:52)
== END 2016-07-29 15:55 | disposition left against medical advice (07) | DRG 770 ==
LOC: M ED 15:39 → M ED INP 17:47 → M ICU 07-27 12:26
PROVIDERS: ATTEND Family Medicine
DX: F10.239 Alcohol dependence with withdrawal, unspecified (principal); G93.41 Metabolic encephalopathy; N17.9 Acute kidney failure, unspecified; R18.8 Other ascites; E87.2 Acidosis; I95.9 Hypotension, unspecified; E87.1 Hypo-osmolality and hyponatremia; K70.0 Alcoholic fatty liver; F17.210 Nicotine dependence, cigarettes, uncomplicated; E87.6 Hypokalemia; E86.0 Dehydration; K80.70 Calculus of gallbladder and bile duct without cholecystitis without obstruction

== ENCOUNTER 2016-07-30 12:40 | Emergency (ER) | payer OTHER ==
[~2016-07-30] VITALS: Ht 180.3 cm; Wt 79.4 kg
[2016-07-30] MEDS ORDERED: KEFL500C7 PO (13:52)
[2016-07-30] MEDS ORDERED: CEPHALEXIN 500 MG CAP PO ONE (14:00)
[2016-07-30] MEDS ORDERED: NORCO, ANEXSIA 5/325MG TABLET (HYDROcodone/ACETAMINOPHEN) PO ONE (14:00)
[2016-07-30] MEDS ORDERED: ADACEL/BOOSTRIX VACCINE (DIPHTH/PERTUSS/ACELL/TETANUS)0.5ML SYR (90715) IM ONE (14:00)
[2016-07-30] MEDS ORDERED: SILVER SULFADIAZINE 1% CR 50 GM JAR TOP ONE (14:00)
[2016-07-30 14:47] VITALS: BP 130/78
== END 2016-07-30 14:53 | disposition home or self-care (01) ==
LOC: M ED 13:36
DX: S90.821A Blister (nonthermal), right foot, initial encounter (principal); S90.822A Blister (nonthermal), left foot, initial encounter; X50.3XXA Overexertion from repetitive movements, initial encounter; Y92.9 Unspecified place or not applicable; Y93.01 Activity, walking, marching and hiking; Y99.0 Civilian activity done for income or pay; R56.9 Unspecified convulsions; F10.20 Alcohol dependence, uncomplicated

== ENCOUNTER 2016-08-31 14:38 | Emergency (ER) | payer OTHER ==
[~2016-08-31] VITALS: Ht 180.3 cm; Wt 71.8 kg
[~2016-08-31 14:38] MED LIST changes: +ABIL1TAB13 PO; -ABIL2TAB2 PO; -FOLI1TAB2 PO; +FOLI1TAB4 PO; +KEFL500C17 PO; -OXYC1SOL PO; +OXYC1SOL3 PO; +PAXI20TA29 PO; -PAXI20TA3 PO; -TRAZ150T14 PO; +TRAZ1TAB14 PO
[2016-08-31] MEDS ORDERED: LORazepam 2 MG/ML VIAL (J2060) IV STA (15:26)
[2016-08-31] MEDS ORDERED: OXAZEPAM 15 MG CAP PO ONE (15:30)
[2016-08-31] MEDS ORDERED: NS 1,000 ML IV ONE (15:30)
[2016-08-31 16:17] LABS: BASO % 0.9 % (0.0-1.0); EOS # 0.2 K/mm3 (0.0-0.50); EOS % 3.7 % (0.0-3.0); LARGE UNSTAINED CELL # 0.1 K/mm3 (0.0-0.4); LARGE UNSTAINED CELL % 1.8 % (0.0-4.0); LYMPH # 0.9 K/mm3 (1.5-4.5); LYMPH % 17.7 % (24.0-44.0); MEAN CORPUSCULAR HEMOGLOBIN 34.3 pg (27.0-33.0); MEAN CORPUSCULAR HGB CONC 34.8 g/dl (32.0-36.5); MEAN CORPUSCULAR VOLUME 98.6 fl (80.0-96.0); MONO # 0.3 K/mm3 (0.0-0.8); MONO % 5.9 % (0.0-5.0); NEUTROPHILS # 3.2 K/mm3 (1.8-7.7); RED CELL DISTRIBUTION WIDTH 13.4 % (11.5-14.5); WHITE BLOOD COUNT 4.5 K/mm3 (4.0-10.0)
[2016-08-31 16:24] LABS: PLATELET COUNT, AUTOMATED 92 k/mm3 (150-450)
[2016-08-31 16:25] LABS: ADD MORPHOLOGY? YES
[2016-08-31 17:07] LABS: ANION GAP 9 MEQ/L (8-16); BLOOD UREA NITROGEN 4 MG/DL (7-18); CARBON DIOXIDE LEVEL 26 MEQ/L (21-32); CHLORIDE LEVEL 103 MEQ/L (98-107); CREATININE FOR GFR 0.74 MG/DL (0.70-1.30); GLOMERULAR FILTRATION RATE > 60.0 (>56); GLUCOSE, FASTING 96 MG/DL (70-105); POTASSIUM SERUM 3.8 MEQ/L (3.5-5.1); SODIUM LEVEL 138 MEQ/L (136-145)
[2016-08-31] MEDS ORDERED: OXAZ30CA2 PO (18:20)
[2016-08-31 19:19] VITALS: BP 160/74
== END 2016-08-31 19:20 | disposition home or self-care (01) ==
LOC: M ED 14:38
DX: F10.239 Alcohol dependence with withdrawal, unspecified (principal); I10 Essential (primary) hypertension; F41.9 Anxiety disorder, unspecified; F32.9 Major depressive disorder, single episode, unspecified
CPT/HCPCS: 36415; 80048; 85025; 96374; 99284; J2060